=== PATIENT | male | born 1955 | race African-American/Black ===

== ENCOUNTER 2021-09-23 08:48 | Emergency (ER) | payer BC ==
[~2021-09-23] VITALS: Ht 177.8 cm; Wt 81.6 kg
[~2021-09-23 08:48] MED LIST: HYZAAR 50/12.51 TAB PO; LIPITOR40 MG PO; OPTIVAR6 ML OP
[2021-09-23] MEDS ORDERED: HYDRALAZINE HC100 MG PO (09:04)
[2021-09-23] MEDS ORDERED: GLUMETZA1000 MG PO (09:05)
[2021-09-23] MEDS ORDERED: CARVEDILOL ER40 MG (09:06)
[2021-09-23] MEDS ORDERED: LEVOTHYROXINE25 MCG PO (09:06)
== END 2021-09-23 13:01 | disposition home or self-care (01) ==
LOC: ER 08:48
DX: R53.1 Weakness (principal); R55 Syncope and collapse